=== PATIENT | female | born 1940 | race Asian ===

== ENCOUNTER 2017-08-27 07:30 | Inpatient (IN) | payer MEDICARE, MEDICAID ==
[~2017-08-27] VITALS: Ht 175.3 cm; Wt 59.9 kg
[2017-10-14] MEDS ORDERED: CRESTOR10 M2 ORAL (12:45)
[2017-10-14] MEDS ORDERED: ZYPREXA2.5 MG ORAL (12:45)
[2017-10-14] MEDS ORDERED: COMPAZINE10 MG ORAL (12:45)
[2017-10-14] MEDS ORDERED: PANTOPRAZOLE SO40 MG ORAL (12:45)
[2017-10-14] MEDS ORDERED: TEMAZEPAM30 MG ORAL (12:45)
[2017-10-14] MEDS ORDERED: DIAZEPAM10 MG ORAL (12:45)
[2017-10-14] MEDS ORDERED: BUPROPION XL300 M1 PO (12:45)
[2017-10-14] MEDS ORDERED: CARAFATE1 G1 ORAL (12:45)
[2017-10-14] MEDS ORDERED: FLUOXETINE HCL20 MG ORAL (12:45)
[2017-10-15] VITALS (18 sets, daily range): BP systolic 115–163; BP diastolic 60–88
[2017-10-15] MEDS ORDERED: SOOTHE LUBRICA1 EACH OP (05:58)
[2017-10-15] MEDS ORDERED: SYMPROIC PO (05:58)
[2017-10-15] MEDS ORDERED: [UNRECOGNIZED DRUG - OTHER] LEFT EYE (06:00)
[2017-10-15] MEDS ORDERED: Bacitracin 50000 Units Vial ONE ×2 (06:51→08:50)
[2017-10-15] MEDS ORDERED: NeoSporin Gu Irrig 1ml Amp IRRIG ONE ×2 (06:51→08:50)
[2017-10-15] MEDS ORDERED: Zemuron 50mg/5ml Inj IV ONE (06:53)
[2017-10-15] MEDS ORDERED: NS Irrig 2000ml IRRIG ONE (07:00)
[2017-10-15] MEDS ORDERED: oxyCODONE 5mg IR tab ORAL PRN (07:00)
[2017-10-15] MEDS ORDERED: Morphine Sulfate 2mg/ml Inj(IV/IM USE ONLY) IVP PRN ×2 (07:00)
[2017-10-15] MEDS ORDERED: Morphine Sulfate 4mg/ml Inj (IV USE ONLY) IVP PRN (07:00)
[2017-10-15] MEDS ORDERED: Sterile Water Irrig 1000ml IRRIG ONE (07:00)
[2017-10-15] MEDS ORDERED: Neostigmine 1mg/ml 10ml Inj ONE (07:00)
[2017-10-15] MEDS ORDERED: LR 1000ml ONE (07:00)
[2017-10-15] MEDS ORDERED: NS Irrig 1000ml ONE (07:00)
[2017-10-15] MEDS ORDERED: Glycopyrrolate 0.2mg/ml 1ml Vial ONE (07:00)
--- NOTE | 2017-10-15 07:00 | Pre-Procedure Note/Attestation ---
Pre-Procedure Note/Attestation Complete Prior to Procedure Planned Procedure: right Procedure Narrative: right knee replacement Indications for Procedure Pre-Operative Diagnosis: right knee arthritis Attestation I attest that I discussed the nature of the procedure; its benefits; risks and complications; and alternatives (and the risks and benefits of such alternatives ), prior to the procedure, with the patient (or the patient's legal litigation claim representative). I attest that, if there was a reasonable possibility of needing a blood transfusion, the patient (or the patient's legal litigation claim representative) was given the [facility] standardized written summary, pursuant to the [place] Blood Safety Act ([place] Health and Safety Code # 1645, as amended). I attest that I re-evaluated the patient just prior to the surgery and that there has been no change in the patient's H&P, except as documented below: Shaq Mann MD Oct 15, 2017 07:00
[2017-10-15] MEDS ORDERED: cloNIDine 1000mcg/10ml inj ONE (07:07)
[2017-10-15] MEDS ORDERED: Midazolam 2mg/2ml Inj ONE (07:08)
--- NOTE | 2017-10-15 07:08 | Brief Operative Note ---
Immediate Post Operative Note Operative Note Pre-op Diagnosis: right knee arthritis Procedure: RIGHT KNEE REPLACEMENT Post-op Diagnosis: RIGHT KNEE ARTHRITIS Post-op Diagnosis: same as pre-op Findings: consistent w/pre-op dx studies Surgeon: MAREN Radar Repairer: TOMEKA Anesthesia: general Specimen: yes Complications: none Fluids: YES Implant(s) used?: Yes Shaq Mann MD Oct 15, 2017 07:08
[2017-10-15] MEDS ORDERED: fentaNYL 100 mcg/2 mL IV ONE ×2 (07:10→07:49)
[2017-10-15] MEDS ORDERED: Bupivacaine 0.75% 30ml vial INJ ONE (07:13)
[2017-10-15] MEDS ORDERED: Tranexamic Acid 1,000 MG in NS 65 ML IV ONE (07:30)
--- NOTE | 2017-10-15 08:39 | Anethesia Preoperative Eval ---
Anesthesia Pre-op PMH/ROS General Date of Evaluation: Oct 15, 2017 Time of Evaluation: 07:00 Anesthesiologist: Koempel. Kina SMITH ASA Score: ASA 2 Mallampati Score Class I : Soft palate, uvula, fauces, pillars visible Class II: Soft palate, uvula, fauces visible Class III: Soft palate, base of uvula visible Class IV: Only hard plate visible Mallampati Classification: Class II Surgeon: Angel Diagnosis: Chondrocalcinosis RIGHT knee Anesthesia History: PONV Family History: no anesthesia problems Allergies: Coded Allergies: No Known Allergies (Unverified , 10/14/17) Past Medical History Cardiovascular: Reports: other - Hyperlipidiemia; Denies: HTN, CAD, [place], valve dz, arrhythmia Gastrointestinal/Genitourinary: Reports: GERD, other; Denies: CRI, ESRD Neurologic/Psychiatric: Reports: depression/anxiety - major depressice disorder with psychotic features, other; Denies: dementia, CVA, TIA Musculoskeletal/Integumentary: Reports: other - Chondrocalcinosis Other: other Anesthesia Pre-op Phys. Exam Physician Exam Last Vital Signs Date Time Temp Pulse Resp B/P (MAP) Pulse Ox O2 Delivery O2 Flow Rate FiO2 10/15/17 06:07 97.2 67 20 132/78 (96) 100 97.2 10/15/17 05:47 Room Air Constitutional: NAD Cardiovascular: RRR Respiratory: CTA Gastrointestinal: S/NT/ND Airway Exam Mallampati Score: Class II MO: full ROM: full Teeth: missing, broken Anesthesia Pre-op A/P Studies Pre-op Studies: EKG, CXR Pre-Antibiotics Drug: Cefazolin Given Within 1 Hr of Incision: Yes Time Given: 07:35 Kina Perez CRNA Oct 15, 2017 08:39
[2017-10-15] MEDS ORDERED: LR 1000ml 1,000 ML IVLG SCH (08:56)
[2017-10-15] MEDS ORDERED: Esmolol 100mg/10ml Inj ONE (09:00)
[2017-10-15] MEDS ORDERED: Dexamethasone 4mg/ml vial ONE (09:00)
[2017-10-15] MEDS ORDERED: DiphenhydrAMINE 50mg/ml Inj IVP PRN (09:00)
[2017-10-15] MEDS ORDERED: fentaNYL 100 mcg/2 mL IV PRN (09:00)
[2017-10-15] MEDS ORDERED: Propofol 200mg/20ml IV ONE (09:00)
[2017-10-15] MEDS ORDERED: Lidocaine 1% MPF 10mg/ml 5ml ONE (09:00)
[2017-10-15] MEDS ORDERED: Hydromorphone 0.5mg/0.5ml inj IVP PRN (09:00)
[2017-10-15] MEDS ORDERED: Enoxaparin 40mg Inj SUBQ SCH (09:00)
[2017-10-15] MEDS ORDERED: Ropivacaine 5mg/ml Vial 30ml INJ ONE (09:00)
[2017-10-15] MEDS ORDERED: Bacitracin Oint 15gm Tube TOPIC ONE (09:29)
--- NOTE | 2017-10-15 10:04 | Immediate Post-Op Evaluation ---
Immediate Post-Op Evalulation Immediate Post-Op Evalulation Procedure: RIGHT total knee replacement Date of Evaluation: Oct 15, 2017 Time of Evaluation: 10:00 IV Fluids: LR 2000 ml Blood Products: none Estimated Blood Loss: 100 ml Urinary Output: 200 ml Blood Pressure Systolic: 159 Blood Pressure Diastolic: 88 Pulse Rate: 87 Respiratory Rate: 20 O2 Sat by Pulse Oximetry: 99 Temperature (Fahrenheit): 98.1 Nausea: No Vomiting: No Complications none Patient Status: awake, reacts, patent Hydration Status: adequate Drug: cefazolin 2 gm Given Within 1 Hr of Incision: Yes Time Given: 07:30 Kina Perez CRNA Oct 15, 2017 10:04
[2017-10-15] MEDS ORDERED: Ketorolac 30mg Inj ONE (10:07)
[2017-10-15] MEDS ORDERED: Rate Change PCA 1 Each MISC PRN (13:30)
[2017-10-15] MEDS ORDERED: Naloxone 0.4mg/ml Inj IV PRN (13:30)
[2017-10-15] MEDS ORDERED: PCA HYDROmorphone 30mg/30ml Syr IV PRN (13:30)
[2017-10-15] MEDS ORDERED: PCA Education Pamphlet MISC ONE (13:30)
--- NOTE | 2017-10-15 13:50 | Diagnostic Imaging Report ---
Indications: Postoperative Technique: Two views of the right knee Comparison: None Findings: Two postoperative views of the right knee demonstrate total knee arthroplasty, good anatomic alignment of the prosthesis. There is a surgical drain in place. . There is postsurgical soft tissue air. Overlying skin kaitlyn. Impression: Postoperative right knee, no unusual features.
--- NOTE | 2017-10-15 13:51 | Diagnostic Imaging Report ---
Indication: Right knee pain Technique: 4 views of the right knee Comparison: None Findings: There is mild narrowing of the medial joint compartment. There is considerable degenerative proliferative change of both compartments as well as subchondral sclerosis and some irregularity of the medial articular surfaces. There are also patellar osteophytes. No definite joint effusion. No acute fractures. No dislocations Impression: Degenerative changes, as described No acute bony trauma
[2017-10-15] MEDS ORDERED: ceFAZolin sod 1 GM in D5W 55 ML IV SCH (14:00)
[2017-10-15] MEDS ORDERED: HYDROcodone/Acetamin 10/325 tab ORAL SCH (14:58)
[2017-10-15] MEDS ORDERED: HYDROcodone/Acetamin 10/325 tab ORAL PRN (15:00)
[2017-10-15] MEDS ORDERED: HYDROmorphone 1mg/ml Carpuject SUBQ PRN (15:00)
[2017-10-15] MEDS: D5 1/2NS w/KCl 20mEq 1,000 ML IV SCH (15:34)
[2017-10-15] MEDS: ceFAZolin 1gm/50ml Premix 50 ML IV SCH ×2 (16:29→23:59)
[2017-10-15] MEDS: Docusate 100mg/10ml Liq NG SCH (17:32)
[2017-10-15] MEDS: PCA shift volume MISC SCH (19:04)
--- NOTE | 2017-10-15 20:23 | Cardiology Progress Note ---
Assessment/Plan Assessment/Plan full note dicated [id number] Objective Last 24 Hour Vital Signs Date Time Temp Pulse Resp B/P (MAP) Pulse Ox O2 Delivery O2 Flow Rate FiO2 10/15/17 17:36 18 10/15/17 17:06 18 10/15/17 17:00 80 18 130/60 (83) 95 10/15/17 16:36 18 10/15/17 16:30 79 20 136/67 (90) 100 10/15/17 16:21 18 10/15/17 16:06 18 10/15/17 16:00 97.4 82 18 115/74 (88) 99 97.4 10/15/17 15:51 18 10/15/17 15:45 91 20 115/74 (88) 100 10/15/17 15:30 89 18 129/70 (89) 99 10/15/17 15:15 97.5 90 18 128/71 (90) 99 97.5 10/15/17 12:10 98.0 68 18 140/77 (98) 99 98.0 10/15/17 11:44 Nasal Cannula 3.0 10/15/17 11:40 81 18 124/73 (90) 99 10/15/17 11:25 97.2 100 18 149/72 (97) 100 97.2 10/15/17 11:07 98.2 65 16 159/65 100 Nasal Cannula 3 98.2 10/15/17 10:45 62 16 143/68 100 Nasal Cannula 3 10/15/17 10:30 69 16 146/71 100 Simple Mask 8 10/15/17 10:15 87 16 150/71 100 Simple Mask 8 10/15/17 10:05 83 16 162/79 100 Simple Mask 8 10/15/17 10:04 208.6 87 20 99 10/15/17 10:00 81 16 163/76 100 Simple Mask 8 10/15/17 09:55 98.1 87 16 159/88 99 Simple Mask 8 98.1 10/15/17 06:07 97.2 67 20 132/78 (96) 100 97.2 10/15/17 05:47 Room Air Blake Granados MD Oct 15, 2017 20:22
[2017-10-15] MEDS: Sucralfate 1gm tab ORAL SCH (21:19)
[2017-10-15] MEDS: Enoxaparin 40mg Inj SUBQ SCH (21:29)
--- NOTE | 2017-10-15 21:45 | Consultation ---
DATE OF CONSULTATION: 10/15/2017 CONSULTING PHYSICIAN: Last Frost M.D. REFERRING PHYSICIAN: Shaq Mann M.D. REASON FOR CONSULTATION: Acute pain consult. HISTORY OF PRESENT ILLNESS: Thank you kindly for consulting me to evaluate and render an opinion as to how to proceed in the management of the patient's acute postoperative right knee pain after right total knee arthroplasty. I saw the patient at the bedside with her stepson. I discussed the case with yourself, Dr. Mann along with the hospitalist, Dr. Granados and the hospital pharmacist, PharmD, Nikita. I performed detailed history and physical examination. I reviewed the medical record in detail including advance directives. PAST MEDICAL HISTORY: 1. Acute postoperative right knee pain status right total knee arthroplasty by Dr. Mann in October 2017. 2. Elderly age. 3. Severe insomnia. 4. Chronic pain syndrome. 5. Major depressive disorder with psychotic features. 6. Hyperlipidemia. PAST SURGICAL HISTORY: Bilateral knee arthroscopies and eye surgeries. MEDICATIONS AT HOME: Talmo 10 mg 4 times a day, sometimes 2 tablets at a time, Restoril 30 mg at bedtime, Carafate, Compazine, Protonix, Crestor, Adderall, and Valium. ALLERGIES: Lactose intolerant. SOCIAL HISTORY: The patient lives with her stepson, who is at the bedside. The patient also has another son who lives near [place]. FAMILY HISTORY: Colon cancer and kidney failure. REVIEW OF SYSTEMS: Per Dr. Granados. PHYSICAL EXAM: GENERAL: Age 77, height 5 feet 3 inches, and weight 130 pounds. VITAL SIGNS: Afebrile, pulse 68, respirations 18, blood pressure 140/77, and pulse ox 99%. HEENT: Normocephalic and atraumatic. ABDOMEN: Soft and flat. NEUROLOGIC: Alert and oriented x3. Moving all extremities x4. EXTREMITIES: Right knee shows a knee mobilizer in place. Moving all toes x10. Significant pain with range of motion. BREASTS AND GENITOURINARY: Deferred. DIAGNOSTIC TESTING: On 10/08/2017 shows glucose 88, BUN 18, and creatinine 0.9. Sodium 140, potassium 4.4, chloride 104, bicarb 29, and calcium 9.5. Total protein 6.5 . Albumin 3.8 . Total bilirubin 0.4. Alkaline phosphatase 79, AST 17, and ALT 14. PTT 32 and INR 1.0. White count 5, hematocrit 34, and platelets 266,000. A 12-lead EKG shows normal sinus rhythm with ventricular rate 71. Preoperative chest x-ray shows no acute cardiopulmonary disease. IMPRESSION: 1. Acute postoperative right knee pain status right total knee arthroplasty by Dr. Mann in October 2017. 2. Elderly age. 3. Severe insomnia. 4. Chronic pain syndrome. 5. Major depressive disorder with psychotic features. 6. Hyperlipidemia. TREATMENT RECOMMENDATIONS: The patient does have a history of chronic opioid usage. Her primary care physician for the past 4 months has been refilling her prescriptions for 10 mg Valium and Talmo 10/325. The patient does use Talmo tablets 1 or 2 at a time with a total daily maximum dose of 4 tablets daily. I will place her on one tablet with each meal for baseline analgesia and then we will add 2 tablets at a time orally every 4 hours p.r.n. for mild pain. I have spoken with the pharmacist, Nikita, to initiate a Dilaudid SEPARATOR INSERTER. I will start with a 0.2 mg demand dose at 12 minutes lockout for better safety profile in this elderly woman. There will be no underlying basal rate or continuous rate. She will continue with the supplemental oxygen and continue with pulse oximetry for at least the first 24 hours along with the SEPARATOR INSERTER unit. I will also make available a breakthrough dose of Dilaudid 1 mg subcutaneously every three hours p.r.n. for severe pain exacerbation. I will discontinue any previous orders for plain Tylenol since the Talmo tablets are already plenty with Tylenol in them. The patient uses Protonix chronically and I have restarted the Protonix 40 mg nightly for GI ulcer prophylaxis. I have also ordered a p.r.n. dose of Mylanta 30 mL q.6 hours in case of any GERD symptom exacerbation. The patient does use Valium and Restoril chronically for her insomnia. With this benzodiazepine-dependence, I have increased the frequency of Valium to q.8 hours p.r.n. for insomnia or anxiety. I have added Benadryl 25 mg orally every 6 hours in case of any itching complaints. I will place the patient on Colace b.i.d. to help with bowel regularity. I have ordered Cepacol lozenges in case of any sore throat complaints. Zofran and Phenergan have been ordered in case of any nausea symptoms. The patient is lactate intolerance, so I have asked the nurse to change the diet to avoid lactose containing products. Dr. Mann has placed the patient on Lovenox 40 mg daily for DVT prophylaxis in this elderly woman. I have taught the patient how to properly use incentive spirometer to encourage good pulmonary toilet and help reduce the risk of postoperative pneumonia and atelectasis. Last Frost M.D. DR: JOEL JOB#: [id number] CC:
--- NOTE | 2017-10-16 02:30 | Consultation ---
DATE OF CONSULTATION: 10/15/2017 CARDIOLOGY CONSULTATION CONSULTING PHYSICIAN: Blake Granados M.D. REFERRING PHYSICIAN: Shaq Mann M.D. REASON FOR REFERRAL: Postoperative medical care. HISTORY OF PRESENT ILLNESS: This is a 77-year-old female, who has been followed by Dr. José Washington. The patient has a series of medical problems. The patient was admitted and undergone knee replacement therapy by Dr. Young today. This consultation is requested for postoperative medical management. The patient does not have any chest pain or shortness of breath. There is no PND. No orthopnea. No palpitation. No dizziness or lightheadedness. PAST MEDICAL HISTORY: Positive for recurrent bouts of major depression, costochondritis, chronic pain syndrome, and hyperlipidemia. She has had a history of cataract surgery and knee arthroscopy previously. MEDICATIONS: As an outpatient include [place], Symproic, Restoril, Carafate, Compazine, vitamin E, Protonix, Crestor, Adderall, Valium, and Depo-testosterone injections. SOCIAL HISTORY: She has never smoked or drank alcoholic beverages. She has a history of acid use many, many years ago she states. REVIEW OF SYSTEMS: GASTROINTESTINAL: She does not have any nausea at this time. No bowel movements. She has been able to eat today. GENITOURINARY: She has a Schroeder catheter. PULMONARY: Has a cough for the past few days. Has had some brown sputum. CONSTITUTIONAL: Negative. NEUROLOGICAL: Numbness and tingling sensation in her left leg. PHYSICAL EXAMINATION: GENERAL: Shows to be an elderly female, in no respiratory distress. NECK: Supple. No jugular venous distention. LUNGS: Clear to auscultation and percussion. CARDIAC: S1 is normal. S2 is normal. Regular rate and rhythm. No heaves, thrills, or gallops noted. ABDOMEN: Soft and nontender. Positive bowel sounds. EXTREMITIES: There is no clubbing, cyanosis, nor is there any edema. Right CPM machine at this time. LABORATORY AND DIAGNOSTIC DATA: The patient does not have any postoperative laboratories. Preop laboratories from Dr. Washington' office were reviewed. Blood sugar was 88. Creatinine was 0.9. Liver function tests were normal. Coags were normal. White count of 5.2, hemoglobin 11.1, and platelet count 266,000. Electrocardiogram preoperatively, appears to be in normal sinus rhythm, no ST or T-wave abnormalities. A chest x-ray performed shows no active cardiopulmonary disease. ASSESSMENT: 1. Status post total knee replacement. 2. History of chondrocalcinosis. 3. Chronic pain syndrome. 4. Depression. 5. Hyperlipidemia. PLAN: This patient was seen in cardiac consultation. She is doing relatively well at the present time. Her vital signs are stable. Blood pressure of 130/60, heart rate of 80, she is afebrile and saturating adequately. She has no new signs and symptoms of any major issues at this time. Her usual home medications will be continued. She will be having DVT prophylaxis with pneumatic compression stockings and will be ambulating when allowed by Dr. Young. Routine postoperative care, Schroeder catheter removed, and she is able to ambulate and hope that she would be able to be discharged in the next 72 hours or so at this time. Blake Granados M.D. DR: NUNO JOB#: [id number] CC:
[2017-10-16 04:00] VITALS: BP 120/68
[2017-10-16] MEDS: D5 1/2NS w/KCl 20mEq 1,000 ML IV SCH ×2 (04:02→17:40)
[2017-10-16] MEDS: HYDROcodone/Acetamin 10/325 tab ORAL SCH ×3 (06:15→17:43)
[2017-10-16] MEDS: PCA shift volume MISC SCH ×2 (07:00→19:22)
[2017-10-16] MEDS ORDERED: HYDROcodone/Acetamin 10/325 tab ORAL PRN (07:30)
[2017-10-16 07:58] LABS: BASOPHILS % (AUTO) 0.8 % (0.0-2.0); EOSINOPHILS % (AUTO) 0.2 % (0.0-3.0); HEMOGLOBIN 10.9 G/DL (12.0-16.0); LYMPHOCYTES % (AUTO) 22.4 % (20.0-45.0); MEAN CORPUSCULAR VOLUME 89 FL (80-99); MONOCYTES % (AUTO) 3.9 % (1.0-10.0); NEUTROPHILS % (AUTO) 72.7 % (45.0-75.0); PLATELET COUNT 204 K/UL (150-450); RED BLOOD COUNT 3.71 M/UL (4.20-5.40); RED CELL DISTRIBUTION WIDTH 12.1 % (11.6-14.8); WHITE BLOOD COUNT 9.4 K/UL (4.8-10.8)
[2017-10-16 08:00] VITALS: BP 114/69
[2017-10-16 08:26] LABS: ALANINE AMINOTRANSFERASE 15 U/L (12-78); ALBUMIN 2.7 G/DL (3.4-5.0); ALBUMIN/GLOBULIN RATIO 0.8 (1.0-2.7); ALKALINE PHOSPHATASE 74 U/L (46-116); ANION GAP 7 mmol/L (5-15); ASPARTATE AMINO TRANSFERASE 23 U/L (15-37); BILIRUBIN,TOTAL 0.4 MG/DL (0.2-1.0); BLOOD UREA NITROGEN 13 mg/dL (7-18); CALCIUM 8.4 MG/DL (8.5-10.1); CARBON DIOXIDE 26 MMOL/L (21-32); CHLORIDE 103 MMOL/L (98-107); CREATININE 0.9 MG/DL (0.55-1.30); POTASSIUM 4.4 MMOL/L (3.5-5.1); SODIUM 136 MMOL/L (136-145)
--- NOTE | 2017-10-16 08:26 | 48 Hour Post Anesthesia Eval ---
Post Anesthesia Evaluation Procedure: RIGHT total knee replacement Date of Evaluation: Oct 16, 2017 Time of Evaluation: 08:17 Blood Pressure Systolic: 124 0: 56 Pulse Rate: 72 Respiratory Rate: 20 Temperature (Fahrenheit): 97.6 O2 Sat by Pulse Oximetry: 98 Airway: patent Nausea: No Vomiting: No Pain Intensity: 3 Hydration Status: adequate Cardiopulmonary Status: stable Mental Status/LOC: patient returned to baseline Follow-up Care/Observations: n/a Post-Anesthesia Complications: none Follow-up care needed: N/A Win Suarez MD Oct 16, 2017 08:26
[2017-10-16] MEDS: Sucralfate 1gm tab ORAL SCH ×4 (08:58→20:30)
[2017-10-16] MEDS: Docusate 100mg/10ml Liq NG SCH ×2 (08:58→17:43)
[2017-10-16 12:00] VITALS: BP 153/83
--- NOTE | 2017-10-16 13:30 | Progress Note ---
DATE: 10/16/2017 ACUTE PAIN MANAGEMENT PHYSICIAN PROGRESS NOTE MEDICATIONS: Medication administration record reviewed. Medications include IV fluids, Colace, Protonix, [place] with meals, Dilaudid CONTRACT PARALEGAL, Lovenox, and Carafate. P.r.n. medications include Narcan, Benadryl, Cepacol, Zofran, Mylanta, Valium, Phenergan, Dilaudid, and [place]. LABORATORY STUDIES: No interval laboratory studies. OBJECTIVE: VITAL SIGNS: Within normal limits. Afebrile, pulse 96, respirations 18, blood pressure 120/68, and oxygen saturation 96%. I saw the patient at the bedside with the nurse RN, Porsche. The patient is alert and oriented x3. She is moving all extremities x4. Her knee is in the full extension position while she is supine. The CPM device is in the bedside. The patient has been using her CONTRACT PARALEGAL Dilaudid unit and I once again explained proper usage to encourage adequate analgesia so she can walk with physical therapy later today. The patient does chronically use 4 mg daily as well as significant amount of nightly benzodiazepine, either Valium or Restoril. I did explain to the patient that Valium remains available 10 mg up to every eight hours p.r.n. The patient also has breakthrough doses of Dilaudid subcutaneously to complement the Dilaudid CONTRACT PARALEGAL, which has been working well. I do have the patient on scheduled [place] one tablet with each meal as she customarily uses three to four tablets of [place] daily already. I also have a p.r.n. dose of [place], which I will reduce to one tablet orally every three hours p.r.n. for additional breakthrough pain. The patient is 77 years old, and despite her considerable narcotic tolerance, may develop some sundowning or mental status changes with the polypharmacy. The patient is on Lovenox for chemical anticoagulation appropriately per Dr. Mann. I did once again encourage aggressive incentive spirometer usage, in this elderly woman, I encouraged good pulmonary toilet. Last Frost M.D. DR: ROSALINA JOB#: [id number] CC:
[2017-10-16 16:00] VITALS: BP 128/73
--- NOTE | 2017-10-16 19:05 | Cardiology Progress Note ---
Assessment/Plan Assessment/Plan 1. Status post total knee replacement. 2. History of chondrocalcinosis. 3. Chronic pain syndrome. 4. Depression. 5. Hyperlipidemia. 6. Anemia i discussed annie in detail reg her antidepressant meds she apparently she stopped all her antidepressant meds 1 week ago on her won appear she was taking prozac 80 mg daily in light of her needing pain meds as well i will start on prozac 20 mg for now Check orthostatic vital in am keep on ivf switch to ns watch cbc in a m Subjective Cardiovascular: Reports: lightheadedness; Denies: chest pain, palpitations Respiratory: Denies: shortness of breath, SOB with excertion Gastrointestinal/Abdominal: Reports: constipated; Denies: abdominal pain Genitourinary: Denies: burning Objective Last 24 Hour Vital Signs Date Time Temp Pulse Resp B/P (MAP) Pulse Ox O2 Delivery O2 Flow Rate FiO2 10/16/17 17:43 97.9 10/16/17 16:00 20 10/16/17 16:00 97.9 88 20 128/73 (91) 95 97.9 10/16/17 12:49 98.8 10/16/17 12:00 20 10/16/17 12:00 98.8 80 20 153/83 (106) 99 98.8 10/16/17 11:50 97.6 10/16/17 09:00 Room Air 10/16/17 08:26 207.7 72 20 98 10/16/17 08:00 18 10/16/17 08:00 99.1 87 19 114/69 (84) 95 99.1 10/16/17 04:00 18 10/16/17 04:00 98.7 96 18 120/68 (85) 96 98.7 10/16/17 00:00 18 10/15/17 21:19 18 10/15/17 21:00 Room Air 10/15/17 20:00 97.7 72 19 130/65 (86) 95 97.7 Neck: supple Cardiovascular: normal rate, regular rhythm Respiratory/Chest: chest wall non-tender, lungs clear Abdomen: normal bowel sounds, non tender, soft Extremities: no swelling, other - pneumaotic stockin in palce left leg , righ tleg in cpm Intake and Output 10/15/17 10/16/17 19:00 07:00 Intake Total 2595 ml 1250 ml Output Total 850 ml 1500 ml Balance 1745 ml -250 ml Intake Oral 320 ml 300 ml IV Total 2275 ml 950 ml Output Urine Total 750 ml 1350 ml Drainage Total 150 ml Estimated Blood Loss 100 ml Laboratory Tests Test 10/16/17 07:05 White Blood Count 9.4 K/UL (4.8-10.8) Red Blood Count 3.71 M/UL (4.20-5.40) L Hemoglobin 10.9 G/DL (12.0-16.0) L Hematocrit 33.0 % (37.0-47.0) L Mean Corpuscular Volume 89 FL (80-99) Mean Corpuscular Hemoglobin 29.3 PG (27.0-31.0) Mean Corpuscular Hemoglobin Concent 32.9 G/DL (32.0-36.0) Red Cell Distribution Width 12.1 % (11.6-14.8) Platelet Count 204 K/UL (150-450) Mean Platelet Volume 7.2 FL (6.5-10.1) Neutrophils (%) (Auto) 72.7 % (45.0-75.0) Lymphocytes (%) (Auto) 22.4 % (20.0-45.0) Monocytes (%) (Auto) 3.9 % (1.0-10.0) Eosinophils (%) (Auto) 0.2 % (0.0-3.0) Basophils (%) (Auto) 0.8 % (0.0-2.0) Prothrombin Time 10.4 SEC (9.30-11.50) Prothromb Time International Ratio 1.0 (0.9-1.1) Sodium Level 136 MMOL/L (136-145) Potassium Level 4.4 MMOL/L (3.5-5.1) Chloride Level 103 MMOL/L (98-107) Carbon Dioxide Level 26 MMOL/L (21-32) Anion Gap 7 mmol/L (5-15) Blood Urea Nitrogen 13 mg/dL (7-18) Creatinine 0.9 MG/DL (0.55-1.30) Estimat Glomerular Filtration Rate mL/min (>60) Glucose Level 124 MG/DL (74-106) H Calcium Level 8.4 MG/DL (8.5-10.1) L Total Bilirubin 0.4 MG/DL (0.2-1.0) Aspartate Amino Transf (AST/SGOT) 23 U/L (15-37) Alanine Aminotransferase (ALT/SGPT) 15 U/L (12-78) Alkaline Phosphatase 74 U/L (46-116) Total Protein 6.2 G/DL (6.4-8.2) L Albumin 2.7 G/DL (3.4-5.0) L Globulin 3.5 g/dL Albumin/Globulin Ratio 0.8 (1.0-2.7) L Blake Granados MD Oct 16, 2017 19:05
--- NOTE | 2017-10-16 19:48 | Consultation ---
History of Present Illness General Date patient seen: Oct 16, 2017 Present Illness HPI 77-year-old female, with hx of depression and anxiety. The patient was admitted and undergone knee replacement therapy by Dr. Hector augustin. Allergies: Coded Allergies: No Known Allergies (Unverified , 10/14/17) Medication History Scheduled Bupropion HCl (Bupropion Xl), 300 MG PO DA, (Reported) Diazepam* (Diazepam*), 10 MG ORAL DA, (Reported) Fluoxetine Hcl* (Fluoxetine Hcl*), 80 MG ORAL DAILY, (Reported) Glycerin/Propylene Glycol (Soothe Lubricant Eye Drops), 1 EACH OP , (Reported) Olanzapine* (Zyprexa*), 2.5 MG ORAL DAILY, (Reported) Pantoprazole* (Pantoprazole*), 40 MG ORAL DAILY, (Reported) Rosuvastatin Calcium* (Crestor*), 10 MG ORAL DAILY, (Reported) Sucralfate* (Carafate*), 1 GM ORAL FOUR TIMES A DAY, (Reported) [Gen Teal Tears], LEFT EYE BEDTIME, (Reported) [Symproic], 0.2 MG PO DA, (Reported) Scheduled PRN Prochlorperazine (Compazine*), 10 MG ORAL Q6H PRN for Nausea & Vomiting, ( Reported) Temazepam* (Temazepam*), 30 MG ORAL BEDTIME PRN for Insomnia, (Reported) Patient History Healthcare decision maker MANOLO Resuscitation status Full Code Advanced Directive on File No Physical Exam Last 24 Hour Vital Signs Date Time Temp Pulse Resp B/P (MAP) Pulse Ox O2 Delivery O2 Flow Rate FiO2 10/16/17 18:42 97.9 10/16/17 17:43 97.9 10/16/17 16:00 20 10/16/17 16:00 97.9 88 20 128/73 (91) 95 97.9 10/16/17 12:00 20 10/16/17 12:00 98.8 80 20 153/83 (106) 99 98.8 10/16/17 11:50 97.6 10/16/17 09:00 Room Air 10/16/17 08:26 207.7 72 20 98 10/16/17 08:00 18 10/16/17 08:00 99.1 87 19 114/69 (84) 95 99.1 10/16/17 04:00 18 10/16/17 04:00 98.7 96 18 120/68 (85) 96 98.7 10/16/17 00:00 18 10/15/17 21:19 18 10/15/17 21:00 Room Air 10/15/17 20:00 97.7 72 19 130/65 (86) 95 97.7 Intake and Output 10/15/17 10/16/17 19:00 07:00 Intake Total 2595 ml 1250 ml Output Total 850 ml 1500 ml Balance 1745 ml -250 ml Intake Oral 320 ml 300 ml IV Total 2275 ml 950 ml Output Urine Total 750 ml 1350 ml Drainage Total 150 ml Estimated Blood Loss 100 ml Laboratory Tests Test 10/16/17 07:05 White Blood Count 9.4 K/UL (4.8-10.8) Red Blood Count 3.71 M/UL (4.20-5.40) L Hemoglobin 10.9 G/DL (12.0-16.0) L Hematocrit 33.0 % (37.0-47.0) L Mean Corpuscular Volume 89 FL (80-99) Mean Corpuscular Hemoglobin 29.3 PG (27.0-31.0) Mean Corpuscular Hemoglobin Concent 32.9 G/DL (32.0-36.0) Red Cell Distribution Width 12.1 % (11.6-14.8) Platelet Count 204 K/UL (150-450) Mean Platelet Volume 7.2 FL (6.5-10.1) Neutrophils (%) (Auto) 72.7 % (45.0-75.0) Lymphocytes (%) (Auto) 22.4 % (20.0-45.0) Monocytes (%) (Auto) 3.9 % (1.0-10.0) Eosinophils (%) (Auto) 0.2 % (0.0-3.0) Basophils (%) (Auto) 0.8 % (0.0-2.0) Prothrombin Time 10.4 SEC (9.30-11.50) Prothromb Time International Ratio 1.0 (0.9-1.1) Sodium Level 136 MMOL/L (136-145) Potassium Level 4.4 MMOL/L (3.5-5.1) Chloride Level 103 MMOL/L (98-107) Carbon Dioxide Level 26 MMOL/L (21-32) Anion Gap 7 mmol/L (5-15) Blood Urea Nitrogen 13 mg/dL (7-18) Creatinine 0.9 MG/DL (0.55-1.30) Estimat Glomerular Filtration Rate mL/min (>60) Glucose Level 124 MG/DL (74-106) H Calcium Level 8.4 MG/DL (8.5-10.1) L Total Bilirubin 0.4 MG/DL (0.2-1.0) Aspartate Amino Transf (AST/SGOT) 23 U/L (15-37) Alanine Aminotransferase (ALT/SGPT) 15 U/L (12-78) Alkaline Phosphatase 74 U/L (46-116) Total Protein 6.2 G/DL (6.4-8.2) L Albumin 2.7 G/DL (3.4-5.0) L Globulin 3.5 g/dL Albumin/Globulin Ratio 0.8 (1.0-2.7) L Height (Feet): 5 Height (Inches): 9.00 Weight (Pounds): 132 Medications Current Medications Medications (Trade) Dose Ordered Sig/Marcia Route PRN Reason Start Time Stop Time Status Last Admin Dose Admin Acetaminophen/ Hydrocodone Bitart ([place] 10/325) 1 tab BEFORE MEALS ORAL 10/16/17 06:30 10/23/17 06:29 10/16/17 17:43 Acetaminophen/ Hydrocodone Bitart ([place] 10/325) 1 tab Q3H PRN ORAL Pain Scale (3-5) 10/16/17 07:30 10/23/17 07:29 Al Hydroxide/Mg Hydroxide (Mylanta) 30 ml Q6H PRN ORAL GERD 10/15/17 14:30 11/14/17 14:29 Cetylpyridinium Chloride (Cepacol) 1 lozg Q2H PRN NEO SORE THROAT 10/15/17 14:30 11/14/17 14:29 Diazepam (Valium) 10 mg Q8H PRN ORAL Insomnia / ANXIETY 10/15/17 14:30 10/22/17 14:29 Diphenhydramine HCl (Benadryl) 25 mg Q6H PRN ORAL Itching 10/15/17 14:30 11/14/17 14:29 10/16/17 08:59 Docusate Sodium (Colace) 100 mg TWICE A DAY NG 10/15/17 18:00 11/14/17 17:59 10/16/17 17:43 Enoxaparin Sodium (Lovenox) 40 mg Q24H SUBQ 10/15/17 21:00 11/14/17 20:59 10/15/17 21:29 Fluoxetine HCl (PROzac) 20 mg DAILY ORAL 10/17/17 09:00 11/16/17 08:59 Hydromorphone HCl 30 ml @ 0 mls/hr Q24H PRN IV For Pain 10/15/17 13:30 10/17/17 13:29 10/15/17 15:11 Hydromorphone HCl (Dilaudid) 1 mg Q3H PRN SUBQ Severe Breakthru Pain (>7) 10/15/17 15:00 10/22/17 14:59 Miscellaneous Medication (EMPLOYMENT SPECIALIST/PROGRAM MANAGER Rate Change) 1 ea DAILY PRN MISC EMPLOYMENT SPECIALIST/PROGRAM MANAGER RATE CHANGE 10/15/17 13:30 10/17/17 13:29 Miscellaneous Medication (EMPLOYMENT SPECIALIST/PROGRAM MANAGER shift volume) 1 ea Q12HR@0700,1900 MISC 10/15/17 19:00 10/17/17 18:59 10/16/17 19:22 Naloxone HCl (Narcan) 0.1 mg PRN IV STAT IF RR<10MIN OR SBP<90MMHG 10/15/17 13:30 10/17/17 13:29 Ondansetron HCl (Zofran) 4 mg Q4H PRN IVP Nausea & Vomiting 10/15/17 14:30 11/14/17 14:29 Pantoprazole (Protonix) 40 mg DAILY ORAL 10/16/17 09:00 11/15/17 08:59 10/16/17 08:58 Promethazine HCl (Phenergan) 12.5 mg Q8H PRN IM Nausea & Vomiting 10/15/17 14:35 11/14/17 14:29 Sodium Chloride 1,000 ml @ 75 mls/hr [id number] IV 10/16/17 19:08 11/15/17 19:07 Sucralfate (Carafate) 1 gm FOUR TIMES A DAY ORAL 10/15/17 21:00 11/14/17 20:59 10/16/17 17:43 Wing Pena MD Oct 16, 2017 19:48
[2017-10-16 20:00] VITALS: BP 105/60
[2017-10-16] MEDS: Enoxaparin 40mg Inj SUBQ SCH (20:29)
[2017-10-17] VITALS: BP 128/77
[2017-10-17] MEDS ORDERED: Rate Change PCA 1 Each MISC PRN
[2017-10-17] MEDS ORDERED: HYDROcodone/Acetamin 10/325 tab ORAL PRN (01:30)
--- NOTE | 2017-10-17 01:45 | Progress Note ---
DATE: 10/17/2017 ACUTE PAIN MANAGEMENT PHYSICIAN PROGRESS NOTE MEDICATIONS: Medication administration record reviewed. Medications include IV fluids, Colace, Protonix, Prozac, [place] with each meal, Lovenox, and Carafate. The p.r.n. medications include Dilaudid FENCE RIDER, Benadryl, Cepacol, Zofran, Mylanta, Valium, Phenergan, Dilaudid, and [place]. LABORATORY STUDIES: Laboratory studies from yesterday shows 10/16/2017 white count 9, hematocrit 33 and platelets 204. Sodium 136, potassium 4.4, chloride 103, bicarbonate 26, BUN 13, creatinine 0.9, glucose 124 and calcium 8.4. Total bilirubin 0.4. AST 23, ALT 15 and alkaline phosphatase 74. Total protein 6.2. Albumin 2.7. INR 1.0. I saw the patient at the bedside after discussion with the nurse, Sondra. The patient did ambulate a bit out of bed with physical therapy, but has been progressing slowly. She does not appear to be overly sedated, but she does seem to be at loss for words at times. I will decrease the dosing of her breakthrough Dilaudid from 1 mg subcutaneously to 0.5 mg subcutaneously. I am fearful that a higher dose may be too strong for her despite her chronic usage of [place]. I also will decrease her scheduled [place] with meals from one tablet of 10/325 mg to one tablet of 5/325 mg. She continues to use the FENCE RIDER Dilaudid unit, but not with significant dosing and frequency. I will continue the FENCE RIDER for now to encourage the patient's ambulation. The patient states that she chronically uses Restoril or Valium. Valium will continue to be available on a p.r.n. basis. The patient's son-in-law remains in the room providing good social support. The patient will continue ambulating with physical therapy as tolerated. The patient remains on Lovenox for DVT prophylaxis. I strongly encourage more aggressive using of incentive spirometer, as the patient does have low-grade fevers, which certainly are contributed from postoperative atelectasis and poor incentive spirometer usage. The patient remains on Prozac for mood stabilization. I will defer discharge planning for the surgeon . Last Frost M.D. DR: KEN JOB#: [id number] CC:
[2017-10-17] MEDS ORDERED: HYDROmorphone 1mg/ml Carpuject SUBQ PRN (03:00)
[2017-10-17 04:00] VITALS: BP 121/65
[2017-10-17] MEDS: HYDROcodone/Acetamin 10/325 tab ORAL SCH ×3 (06:29→16:30)
[2017-10-17] MEDS: PCA shift volume MISC SCH ×2 (06:58→19:20)
[2017-10-17 08:00] VITALS: BP 113/65
[2017-10-17 08:14] LABS: BASOPHILS % (AUTO) 0.7 % (0.0-2.0); EOSINOPHILS % (AUTO) 1.6 % (0.0-3.0); HEMOGLOBIN 9.4 G/DL (12.0-16.0); LYMPHOCYTES % (AUTO) 22.3 % (20.0-45.0); MEAN CORPUSCULAR VOLUME 87 FL (80-99); MONOCYTES % (AUTO) 5.4 % (1.0-10.0); NEUTROPHILS % (AUTO) 69.9 % (45.0-75.0); PLATELET COUNT 181 K/UL (150-450); RED BLOOD COUNT 3.22 M/UL (4.20-5.40); RED CELL DISTRIBUTION WIDTH 11.8 % (11.6-14.8); WHITE BLOOD COUNT 8.9 K/UL (4.8-10.8)
[2017-10-17 08:36] LABS: ANION GAP 5 mmol/L (5-15); BLOOD UREA NITROGEN 11 mg/dL (7-18); CALCIUM 8.8 MG/DL (8.5-10.1); CARBON DIOXIDE 29 MMOL/L (21-32); CHLORIDE 103 MMOL/L (98-107); POTASSIUM 3.5 MMOL/L (3.5-5.1); SODIUM 137 MMOL/L (136-145)
[2017-10-17] MEDS: Docusate 100mg/10ml Liq NG SCH (08:55)
[2017-10-17] MEDS: Sucralfate 1gm tab ORAL SCH ×4 (08:55→21:05)
[2017-10-17 12:00] VITALS: BP 108/66
[2017-10-17] MEDS ORDERED: PCA HYDROmorphone 1mg/ml 30 ML IV PRN (13:30)
[2017-10-17 16:00] VITALS: BP 126/63
[2017-10-17] MEDS ORDERED: Tubing IV Secondary IV ONE (16:20)
[2017-10-17] MEDS: Docusate 100mg/10ml Liq ORAL SCH (18:14)
--- NOTE | 2017-10-17 19:07 | Cardiology Progress Note ---
Assessment/Plan Assessment/Plan 1. Status post total knee replacement. 2. History of chondrocalcinosis. 3. Chronic pain syndrome. 4. Depression. 5. Hyperlipidemia. 6. Anemia on prozac 20 mg for now Check orthostatic vital in am keep on ivf switch to ns watch cbc in a m again mom amelie may need Subjective Cardiovascular: Denies: chest pain, lightheadedness, palpitations Respiratory: Denies: SOB with excertion Gastrointestinal/Abdominal: Reports: constipated; Denies: abdominal pain Genitourinary: Denies: discharge Objective Last 24 Hour Vital Signs Date Time Temp Pulse Resp B/P (MAP) Pulse Ox O2 Delivery O2 Flow Rate FiO2 10/17/17 16:00 98.1 97 19 126/63 (84) 98 98.1 10/17/17 16:00 19 10/17/17 13:32 99.2 10/17/17 12:33 99.2 10/17/17 12:00 18 10/17/17 12:00 97.9 110 20 108/66 (80) 99 97.9 10/17/17 09:00 Room Air 10/17/17 08:00 18 10/17/17 08:00 99.2 107 18 113/65 (81) 96 99.2 10/17/17 04:00 99.2 100 19 121/65 (83) 97 99.2 10/17/17 04:00 19 10/17/17 00:00 97.2 100 20 128/77 (94) 94 97.2 10/17/17 00:00 20 10/16/17 21:00 Room Air 10/16/17 20:00 100.1 100 20 105/60 (75) 94 100.1 10/16/17 20:00 20 General Appearance: alert Neck: supple Cardiovascular: normal rate, regular rhythm Respiratory/Chest: lungs clear, normal breath sounds Abdomen: normal bowel sounds, non tender, soft Extremities: no swelling Intake and Output 10/16/17 10/17/17 19:00 07:00 Intake Total 220 ml 675 ml Output Total 1580 ml 60 ml Balance -1360 ml 615 ml Intake Oral 220 ml 300 ml IV Total 375 ml Output Urine Total 1500 ml Drainage Total 80 ml 60 ml # Voids 4 Laboratory Tests Test 10/17/17 07:00 White Blood Count 8.9 K/UL (4.8-10.8) Red Blood Count 3.22 M/UL (4.20-5.40) L Hemoglobin 9.4 G/DL (12.0-16.0) L Hematocrit 28.0 % (37.0-47.0) L Mean Corpuscular Volume 87 FL (80-99) Mean Corpuscular Hemoglobin 29.2 PG (27.0-31.0) Mean Corpuscular Hemoglobin Concent 33.5 G/DL (32.0-36.0) Red Cell Distribution Width 11.8 % (11.6-14.8) Platelet Count 181 K/UL (150-450) Mean Platelet Volume 7.5 FL (6.5-10.1) Neutrophils (%) (Auto) 69.9 % (45.0-75.0) Lymphocytes (%) (Auto) 22.3 % (20.0-45.0) Monocytes (%) (Auto) 5.4 % (1.0-10.0) Eosinophils (%) (Auto) 1.6 % (0.0-3.0) Basophils (%) (Auto) 0.7 % (0.0-2.0) Prothrombin Time 10.3 SEC (9.30-11.50) Prothromb Time International Ratio 1.0 (0.9-1.1) Sodium Level 137 MMOL/L (136-145) Potassium Level 3.5 MMOL/L (3.5-5.1) Chloride Level 103 MMOL/L (98-107) Carbon Dioxide Level 29 MMOL/L (21-32) Anion Gap 5 mmol/L (5-15) Blood Urea Nitrogen 11 mg/dL (7-18) Creatinine 1.0 MG/DL (0.55-1.30) Estimat Glomerular Filtration Rate mL/min (>60) Glucose Level 120 MG/DL (74-106) H Calcium Level 8.8 MG/DL (8.5-10.1) Microbiology Date/Time Source Procedure Growth Status 10/15/17 05:45 Nasal Nares MRSA Culture - Final NO METHICILLIN RESISTANT STAPH AUREUS... Complete Blake Granados MD Oct 17, 2017 19:07
[2017-10-17] MEDS ORDERED: Milk of Magnesia 30ml Ud ORAL SCH (19:30)
[2017-10-17 20:00] VITALS: BP 150/74
[2017-10-17] MEDS: Enoxaparin 40mg Inj SUBQ SCH (21:07)
[2017-10-18] VITALS: BP 147/82
[2017-10-18 04:00] VITALS: BP 127/76
[2017-10-18] MEDS: HYDROcodone/Acetamin 10/325 tab ORAL SCH ×3 (06:45→17:13)
[2017-10-18] MEDS: PCA shift volume MISC SCH ×2 (07:37→19:00)
[2017-10-18 07:46] LABS: INR 0.9 (0.9-1.1)
[2017-10-18 08:00] VITALS: BP 108/60
[2017-10-18] MEDS: BuPROPion XL 300mg tab ORAL SCH (08:50)
[2017-10-18] MEDS: Docusate 100mg/10ml Liq ORAL SCH ×2 (08:50→17:13)
[2017-10-18] MEDS: Sucralfate 1gm tab ORAL SCH ×4 (08:50→20:59)
[2017-10-18 12:00] VITALS: BP 127/76
[2017-10-18 16:00] VITALS: BP 116/72
--- NOTE | 2017-10-18 18:51 | Cardiology Progress Note ---
Assessment/Plan Status: stable, progressing Status Narrative s/p R knee replacement 10/15 Hemodynamically stable. Pain controlled w/ SITE RELIABILITY ENGINEER She c/o cough w/ purulent sputum - r/o bronchitis Assessment/Plan Continue SITE RELIABILITY ENGINEER per pain management service rehab/ PT Incentive spirometer will check sputum culture, cbc/ wbc. Does not appear toxic Subjective ROS Limited/Unobtainable: No Subjective Pt c/o cough w greenish sputum production. Objective Last 24 Hour Vital Signs Date Time Temp Pulse Resp B/P (MAP) Pulse Ox O2 Delivery O2 Flow Rate FiO2 10/18/17 18:12 97.8 10/18/17 17:13 97.8 10/18/17 16:00 19 10/18/17 16:00 97.8 97 19 116/72 (87) 98 97.8 10/18/17 12:16 98.8 10/18/17 12:00 19 10/18/17 12:00 98.0 93 18 127/76 (93) 99 98.0 10/18/17 09:00 Room Air 10/18/17 08:00 97.9 93 18 108/60 (76) 95 97.9 10/18/17 08:00 18 10/18/17 04:00 16 10/18/17 04:00 98.8 99 18 127/76 (93) 93 98.8 10/18/17 00:00 18 10/18/17 00:00 99.3 106 18 147/82 (103) 94 99.3 10/17/17 21:00 Room Air 10/17/17 20:00 18 10/17/17 20:00 98.4 107 18 150/74 (99) 97 98.4 General Appearance: WD/WN, no apparent distress, alert EENT: PERRL/EOMI Neck: supple, normal inspection, no JVD Rhythm: NSR Cardiovascular: normal rate, regularly irregular, no gallop/murmur Respiratory/Chest: chest wall non-tender, other - clear anteriorly Abdomen: non tender, soft Extremities: other - R knee immobilizer , dressing intact . L LE scd Intake and Output 10/17/17 10/18/17 19:00 07:00 # Voids 6 2 Laboratory Tests Test 10/18/17 05:05 Prothrombin Time 9.8 SEC (9.30-11.50) Prothromb Time International Ratio 0.9 (0.9-1.1) Sunita Palmer MD Oct 18, 2017 18:51
[2017-10-18 20:00] VITALS: BP 116/79
[2017-10-18] MEDS: Enoxaparin 40mg Inj SUBQ SCH (21:04)
[2017-10-19] VITALS: BP 133/81
[2017-10-19 04:00] VITALS: BP 146/88
[2017-10-19 05:28] LABS: BASOPHILS % (AUTO) 0.8 % (0.0-2.0); EOSINOPHILS % (AUTO) 3.2 % (0.0-3.0); HEMATOCRIT 24.4 % (37.0-47.0); HEMOGLOBIN 8.3 G/DL (12.0-16.0); LYMPHOCYTES % (AUTO) 22.5 % (20.0-45.0); MEAN CORPUSCULAR VOLUME 88 FL (80-99); NEUTROPHILS % (AUTO) 66.5 % (45.0-75.0); PLATELET COUNT 181 K/UL (150-450); RED BLOOD COUNT 2.76 M/UL (4.20-5.40); RED CELL DISTRIBUTION WIDTH 11.6 % (11.6-14.8); WHITE BLOOD COUNT 6.7 K/UL (4.8-10.8)
[2017-10-19 05:32] LABS: INR 0.9 (0.9-1.1)
[2017-10-19 05:42] LABS: ANION GAP 6 mmol/L (5-15); BLOOD UREA NITROGEN 12 mg/dL (7-18); CALCIUM 8.4 MG/DL (8.5-10.1); CARBON DIOXIDE 32 MMOL/L (21-32); CHLORIDE 101 MMOL/L (98-107); CREATININE 0.9 MG/DL (0.55-1.30); SODIUM 139 MMOL/L (136-145)
[2017-10-19] MEDS: HYDROcodone/Acetamin 10/325 tab ORAL SCH ×3 (05:58→16:58)
[2017-10-19 08:00] VITALS: BP 125/76
[2017-10-19] MEDS: BuPROPion XL 300mg tab ORAL SCH (08:34)
[2017-10-19] MEDS: Sucralfate 1gm tab ORAL SCH ×4 (08:34→20:46)
[2017-10-19] MEDS: Docusate 100mg/10ml Liq ORAL SCH ×2 (08:40→17:59)
[2017-10-19 11:29] VITALS: BP 122/68
--- NOTE | 2017-10-19 14:08 | Cardiology Progress Note ---
Assessment/Plan Status: stable, progressing Status Narrative s/p R knee replacement 10/15 Anemia - c/w surgical blood loss. Cough - ? bronchitis, ? atelectasis Assessment/Plan Pain management, PT per orthopedic surgery Incentive spirometer Sputum culture pending Followup h/h in am. Hold transfusion unless hg < 7 or symptoms d/w RN Subjective Subjective Pt c/o knee pain. Cough has improved Objective Last 24 Hour Vital Signs Date Time Temp Pulse Resp B/P (MAP) Pulse Ox O2 Delivery O2 Flow Rate FiO2 10/19/17 12:00 20 10/19/17 11:29 99.5 86 20 122/68 (86) 96 99.5 10/19/17 09:00 Room Air 10/19/17 08:00 98.0 98 20 125/76 (92) 96 98.0 10/19/17 08:00 20 10/19/17 04:00 19 10/19/17 04:00 98.2 97 18 146/88 (107) 99 98.2 10/19/17 00:00 99.3 98 19 133/81 (98) 99 99.3 10/19/17 00:00 19 10/18/17 21:00 Room Air 10/18/17 20:00 19 10/18/17 20:00 97.9 96 19 116/79 (91) 96 97.9 10/18/17 18:12 97.8 10/18/17 17:13 97.8 10/18/17 16:00 19 10/18/17 16:00 97.8 97 19 116/72 (87) 98 97.8 General Appearance: WD/WN, no apparent distress, alert EENT: PERRL/EOMI Neck: supple, no JVD Rhythm: NSR Cardiovascular: normal rate, regular rhythm, no gallop/murmur Respiratory/Chest: lungs clear, other - clear anteriorly Abdomen: normal bowel sounds, non tender, soft Extremities: other - R knee dressing intact. mild to moderate edema Neurologic: alert, responsive Intake and Output 10/18/17 10/19/17 19:00 07:00 Intake Total 360 ml Balance 360 ml Intake Oral 360 ml # Voids 4 5 Laboratory Tests Test 10/19/17 04:15 White Blood Count 6.7 K/UL (4.8-10.8) Red Blood Count 2.76 M/UL (4.20-5.40) L Hemoglobin 8.3 G/DL (12.0-16.0) L Hematocrit 24.4 % (37.0-47.0) L Mean Corpuscular Volume 88 FL (80-99) Mean Corpuscular Hemoglobin 29.9 PG (27.0-31.0) Mean Corpuscular Hemoglobin Concent 33.9 G/DL (32.0-36.0) Red Cell Distribution Width 11.6 % (11.6-14.8) Platelet Count 181 K/UL (150-450) Mean Platelet Volume 7.5 FL (6.5-10.1) Neutrophils (%) (Auto) 66.5 % (45.0-75.0) Lymphocytes (%) (Auto) 22.5 % (20.0-45.0) Monocytes (%) (Auto) 7.0 % (1.0-10.0) Eosinophils (%) (Auto) 3.2 % (0.0-3.0) H Basophils (%) (Auto) 0.8 % (0.0-2.0) Prothrombin Time 9.8 SEC (9.30-11.50) Prothromb Time International Ratio 0.9 (0.9-1.1) Sodium Level 139 MMOL/L (136-145) Potassium Level 4.0 MMOL/L (3.5-5.1) Chloride Level 101 MMOL/L (98-107) Carbon Dioxide Level 32 MMOL/L (21-32) Anion Gap 6 mmol/L (5-15) Blood Urea Nitrogen 12 mg/dL (7-18) Creatinine 0.9 MG/DL (0.55-1.30) Estimat Glomerular Filtration Rate mL/min (>60) Glucose Level 117 MG/DL (74-106) H Calcium Level 8.4 MG/DL (8.5-10.1) L Microbiology Date/Time Source Procedure Growth Status 10/18/17 20:40 Sputum Expectorated Gram Stain - Final Resulted 10/18/17 20:40 Sputum Expectorated Sputum Culture Pending Resulted Sunita Palmer MD Oct 19, 2017 14:08
[2017-10-19 16:00] VITALS: BP 119/72
[2017-10-19 20:00] VITALS: BP 138/83
[2017-10-19] MEDS: Enoxaparin 40mg Inj SUBQ SCH (20:50)
[2017-10-20] VITALS: BP 117/70
[2017-10-20 04:00] VITALS: BP 103/63
[2017-10-20] MEDS: HYDROcodone/Acetamin 10/325 tab ORAL SCH ×3 (06:21→16:53)
[2017-10-20 07:32] LABS: BASOPHILS % (AUTO) 1.1 % (0.0-2.0); EOSINOPHILS % (AUTO) 3.6 % (0.0-3.0); HEMATOCRIT 24.7 % (37.0-47.0); HEMOGLOBIN 8.5 G/DL (12.0-16.0); LYMPHOCYTES % (AUTO) 24.7 % (20.0-45.0); MEAN CORPUSCULAR VOLUME 86 FL (80-99); MONOCYTES % (AUTO) 9.3 % (1.0-10.0); NEUTROPHILS % (AUTO) 61.3 % (45.0-75.0); PLATELET COUNT 217 K/UL (150-450); RED BLOOD COUNT 2.87 M/UL (4.20-5.40); RED CELL DISTRIBUTION WIDTH 11.7 % (11.6-14.8)
[2017-10-20 08:00] VITALS: BP 143/66
[2017-10-20] MEDS: Docusate 100mg/10ml Liq ORAL SCH (09:00)
--- NOTE | 2017-10-20 09:23 | Physician Query ---
--------- THIS DOCUMENT IS A PERMANENT PART OF THE MEDICAL RECORD --------- PLEASE COMPLETE DOCUMENT BEFORE SIGNING Dear Dr. Mann Date: 10/20/2017 Acquisition Marketing Manager/CDS Name: Bryce Chacon Acquisition Marketing Manager/CDS Phone No.: [phone] Exercise your independent professional judgment when responding to the query. Questions asked do not imply a particular answer is desired or expected. We greatly appreciate your clarification on this issue. CLINICAL DOCUMENTATION STATES: Patient is admitted for right knee placement. CLINICAL FINDINGS SHOW: BMI: 19.5, Albumin: 2.7 Please select the most appropriate option: a. Severity b. Type [] Mild [] Protein Malnutrition [] Moderate [] Protein/Calorie Malnutrition [] Severe Criteria: Mild to Moderate Malnutrition >Serum albumin 2.8 to 3.4 g/dL or Pre-albumin 5 to 7 mg/dl (3) >Inadequate nutritional intake (1, 2, 3, 4) >NPO > 5 days >Weight loss: 5% in 1 month or 7.5% in 3 months or 10% in 6 months (1,3,4) >BMI 16 to 18.4 or Weight <90 of ideal body weight (1,2,3,4) Criteria: Moderate to Severe Malnutrition >Serum Albumin < 2.8 g/dL (1,2) >Lymphocytes < 1500/uL (2) >Inadequate nutritional intake3 , high stress e.g. major trauma, sepsis, pancreatitis, cerda etc. >Decubitus ulcers (1,2) , skin breakdown(2), easy hair pluckability >Weight <80% standard for height (2) >Triceps skin fold <3 mm2 >Mid-arm muscle circumference <25 cm2 >Creatinine-height index <60% standard (2) [] Hypoalbuminemia [] Emancipated w/ Malnutrition [] [place] (rare in [place]) [] Marasmus [] Other [] Unable to determine [] Not Applicable Condition Present on Admission: [] Yes [] No [ ] Unable to determine Please also document in your Progress Notes and/or Discharge Summary and indicate if the condition was present on admission. M.Alfonso. References: 1 [facility] Board. (2007). Nutritional support strategy for protein -energy malnutrition in the elderly. Clinical Practice Guidelines. 2 Teresita Martinez (2011). Malnutrition and nutritional assessment. In Arron Lr (18th Ed.) Stephon's Principle of Internal Medicine (450-560) [place], [place]: [facility] 3 Mary Correa. (2001). Clinical Nutrition: Protein-energy malnutrition in the inpatient. [place] [employer] Journal, vol. 165 no. 10 (pp. 1345- 134 ). 4 Melina Cho (2012). Geriactric Nutrition: Nutritional Issues in Older Adults. [email or web address]
[2017-10-20] MEDS: Sucralfate 1gm tab ORAL SCH ×2 (09:27→12:02)
[2017-10-20] MEDS: BuPROPion XL 300mg tab ORAL SCH (09:27)
[2017-10-20 12:00] VITALS: BP 143/70
[2017-10-20 16:10] VITALS: BP 120/56
--- NOTE | 2017-10-20 23:45 | Operative Note - Dictated ---
DATE OF OPERATION: 10/20/2017 NOTE: POOR AUDIO PREOPERATIVE DIAGNOSIS: Left knee end-stage osteoarthritis. POSTOPERATIVE DIAGNOSIS: Left knee end-stage osteoarthritis. PROCEDURES: Left total knee replacement. SURGEON: Shaq Mann M.D. CHANGE BOOTH ATTENDANT: Unknown. KILN OPERATOR HELPER: None. PREOPERATIVE NOTE: This is a pleasant lady who has been having pain in the knee associated with locking giving way. She did not . She had an MRI, x-rays, and multiple injections, which she has failed. I explained to her the surgery and the risks being infection, bleeding, anesthetic risks, neurovascular damage, and failure of the surgery. The patient agreed and consents were obtained. OPERATIVE ROOM NOTE: Under the benefit of endotracheal intubation and general anesthetic, the patient was given a gram of Ancef. A midline incision was made and incised through subcutaneous tissue down medial retinaculum . Identifying the osteophytes, femur with a long gaye and then placed take off 2 more mm flexion contracture and incised this made my anterior cuts, posterior cuts, anterior chamfer and posterior chamfers cuts degrees external rotation femoral component. down the proximal tibia taking 2 mm of the low side degree slope. I removed the specimen severe strain with a short full extension and full flexion stability. I then cemented the tibial component and the femoral component. Patellofemoral was subcutaneous tissue with 2-0 Vicryl, and skin with kaitlyn. There were no complications. The patient in stable condition. Shaq Mann M.D. DR: CYRIL JOB#: [id number] CC:
--- NOTE | 2017-10-22 13:06 | Discharge Summary ---
Discharge Summary Hospital Course Date of Admission Oct 15, 2017 at 05:17 Date of Discharge Oct 20, 2017 at 18:27 Admitting Diagnosis right knee osteoarthritis Reason for Hospitalization: elective surgery HPI Analia Jay is a 77 year old female who was admitted on Oct 15, 2017 at 05:17 for Right Knee Osteoarthritis Consultations 1. dr Granados-IM/cardio 2. dr Frost -pain specialist 3. dr Pena - psychiatrist Procedures s/p 10/15/[address] Mann right total knee replacement Hospital Course s/p surgery course of recovery uneventful internal medicine/mapping supervisor closely followed initially IVF neurovascular status closely monitored pain management provided as per pain specialist recommendation , initially with STAFF ACCOUNTANT patient was working with physical and occupational therapists Fall precautions maintained Incentive spirometry use was encouraged while in the bed DVT and GI prophylaxis provided patient noted to have cough sputum culture was negative pulmonary toilet provided as needed incentive spirometry use was further encouraged bowel regimen instituted patient was able to tolerate diet, IVF discontinued STAFF ACCOUNTANT discontinued and patient switched to oral analgesics as per pain specialist psychiatrist seen and evaluated the patient psychiatric medication regimen was optimized patient slowly improved and was ready for discharge home with home health services neurovascularly intact, dressing clean, dry ,and intact, pain controlled, tolerated diet, voided freely, discharge instruction provided follow up with surgeon as recommended by surgeon FINAL DIAGNOSIS Right knee osteoarthritis s/p right total knee replacement. History of chondrocalcinosis Chronic pain syndrome Hyperlipidemia Major depressive disorder with psychotic features Severe insomnia Discharge Medications Continued Medications: Bupropion HCl (Bupropion Xl) 300 Mg Tab.er.24h 300 MG PO DA, TAB (This prescription has been renewed) Diazepam* (Diazepam*) 10 Mg Tablet 10 MG ORAL DA, TAB 0 Refills (This prescription has been renewed) Fluoxetine Hcl* (Fluoxetine Hcl*) 20 Mg Capsule 80 MG ORAL DAILY, CAP (This prescription has been renewed) [Gen Teal Tears] () LEFT EYE BEDTIME (This prescription has been renewed) Glycerin/Propylene Glycol (Soothe Lubricant Eye Drops) 1 Each Droperette 1 EACH OP (This prescription has been renewed) Olanzapine* (Zyprexa*) 2.5 Mg Tablet 2.5 MG ORAL DAILY, #30 TAB 0 Refills (This prescription has been renewed) Pantoprazole* (Pantoprazole*) 40 Mg Tablet.dr 40 MG ORAL DAILY, TAB (This prescription has been renewed) Prochlorperazine (Compazine*) 10 Mg Tablet 10 MG ORAL Q6H PRN for Nausea & Vomiting, TAB (This prescription has been renewed) Rosuvastatin Calcium* (Crestor*) 10 Mg Tablet 10 MG ORAL DAILY, TAB (This prescription has been renewed) Sucralfate* (Carafate*) 1 Gm Tablet 1 GM ORAL FOUR TIMES A DAY, TAB (This prescription has been renewed) [Symproic] () 0.2 MG PO DA (This prescription has been renewed) Temazepam* (Temazepam*) 30 Mg Capsule 30 MG ORAL BEDTIME PRN for Insomnia, CAP (This prescription has been renewed) Discharge Condition Upon Discharge: stable Discharge Disposition Patient was discharged to Home with home health services Discharge Instructions Discharge Instructions Special Instructions I have been assigned to complete a D/C Summary on this account. I was not involved in the patient management Jahaira Wood NP Oct 22, 2017 13:06
== END 2017-10-20 18:27 | disposition home health service (06) | DRG 470 ==
LOC: SDSOVERFLO 10-15 05:17 → 3E 10-15 13:52
PROC: 0SRC0J9 Replacement of Right Knee Joint with Synthetic Substitute, Cemented, Open Approach (ICD-10-PCS; principal; 2017-10-15 07:00)
DX: M17.11 Unilateral primary osteoarthritis, right knee (principal); F32.3 Major depressive disorder, single episode, severe with psychotic features; G89.4 Chronic pain syndrome; E78.5 Hyperlipidemia, unspecified; G47.00 Insomnia, unspecified; M11.261 Other chondrocalcinosis, right knee; G89.18 Other acute postprocedural pain
CPT/HCPCS: 36415; 80048; 80053; 85025; 85610; 86850; 86900; 86901; 86920; 87070; 87081; 87205; 94003; 94150; J2250; J2405; J2710

== ENCOUNTER 2019-07-16 10:39 | Emergency (ER) | payer MEDICARE, MEDICAID ==
[~2019-07-16] VITALS: Ht 160 cm; Wt 59.0 kg
[~2019-07-16 10:39] MED LIST: BUPROPION XL300 M1 PO; CARAFATE1 G1 ORAL; COMPAZINE10 MG ORAL; CRESTOR10 M2 ORAL; DIAZEPAM10 MG ORAL; FLUOXETINE HCL20 MG ORAL; PANTOPRAZOLE SO40 MG ORAL; SOOTHE LUBRICA1 EACH OP; SYMPROIC PO; TEMAZEPAM30 MG ORAL; ZYPREXA2.5 MG ORAL; [UNRECOGNIZED DRUG - OTHER] LEFT EYE
--- NOTE | 2019-07-16 10:57 | NUR ---
ED Nurse Note: Pt was dropped off to ed by friend shakira patino
--- NOTE | 2019-07-16 10:58 | NUR ---
ED Nurse Note: Pt ambulated to ed c/o left lateral rib pain s/p slip and fall three days ago. pt states that she was walking out the door and slipped. Pt does not recall if she hit her head. pt respons to questions slowly. pt states 10/10 during palpation of left lateral rib. pt appears drowsy. iv line established; patent and intact. blood specimen sent to lab
[2019-07-16 11:10] VITALS: BP 101/77
--- NOTE | 2019-07-16 11:13 | NUR ---
ED Nurse Note: Left lateral rib show no bruising or abnormalities, skin dry and intact. pt placed in gown, attached to director of cardiac rehabilitation, pt provided with blanket, lights dimmed for comfort. pt attempted to urinate on bed mann; unable to obtain urine at this time will reattempt.
--- NOTE | 2019-07-16 11:20 | NUR ---
ED Nurse Note: pt taken to CT Addendum: 07/16/19 at 1121 by NELLY ED Nurse Note: PT taken to CT on venita with city planning aide
[2019-07-16 11:21] LABS: BASOPHILS % (AUTO) 1.3 % (0.0-2.0); EOSINOPHILS % (AUTO) 1.5 % (0.0-3.0); HEMATOCRIT 39.1 % (37.0-47.0); HEMOGLOBIN 13.4 G/DL (12.0-16.0); MEAN CORPUSCULAR VOLUME 84 FL (80-99); MONOCYTES % (AUTO) 6.2 % (1.0-10.0); PLATELET COUNT 273 K/UL (150-450); RED BLOOD COUNT 4.64 M/UL (4.20-5.40); RED CELL DISTRIBUTION WIDTH 11.7 % (11.6-14.8); WHITE BLOOD COUNT 8.1 K/UL (4.8-10.8)
[2019-07-16 11:26] LABS: INR 0.9 (0.9-1.1)
[2019-07-16 11:30] LABS: ANION GAP 8 mmol/L (5-15); BLOOD UREA NITROGEN 16 mg/dL (7-18); CALCIUM 9.2 MG/DL (8.5-10.1); CARBON DIOXIDE 29 MMOL/L (21-32); CHLORIDE 103 MMOL/L (98-107); CREATININE 1.2 MG/DL (0.55-1.30); POTASSIUM 3.7 MMOL/L (3.5-5.1); SODIUM 140 MMOL/L (136-145)
[2019-07-16 11:34] LABS: ALANINE AMINOTRANSFERASE 18 U/L (12-78); ALBUMIN 3.6 G/DL (3.4-5.0); ALBUMIN/GLOBULIN RATIO 0.9 (1.0-2.7); ALKALINE PHOSPHATASE 111 U/L (46-116); ASPARTATE AMINO TRANSFERASE 14 U/L (15-37); BILIRUBIN,TOTAL 0.7 MG/DL (0.2-1.0)
--- NOTE | 2019-07-16 11:34 | NUR ---
ED Nurse Note: Pt returned from CT
--- NOTE | 2019-07-16 12:03 | Emergency Room Report ---
History of Present Illness General Chief Complaint: Multiple Trauma/Fall Source: Patient Present Illness HPI This patient states that 2 days ago she was walking and missed a step down a curb and fell very hard onto her left lateral chest. She states she has severe pain at that location. She denies cough or congestion. She denies abdominal pain. She denies shortness of breath. Or chills. She denies head injury or trauma. She denies headache or neck pain. She states she did not hit her head. She has no other complaints. Allergies: Coded Allergies: No Known Allergies (Unverified , 10/14/17) COVID-19 Screening Contact w/high risk pt: No Recent Travel to affected area: No Experienced COVID-19 symptoms?: No COVID-19 Testing performed FUEL CONVERSION TECHNICIAN: No Patient History Past Medical History: see triage record, GERD, other - Uterine CA, Graves DZ Social History: Denies: smoking, alcohol use, drug use Reviewed Nursing Documentation: PMH: Agreed; PSxH: Agreed Nursing Documentation-PMH Past Medical History: No History, Except For Hx Cardiac Problems: Yes Hx Cancer: Yes Hx Gastrointestinal Problems: Yes Hx Neurological Problems: No Review of Systems All Other Systems: negative except mentioned in HPI Physical Exam Vital Signs Date Time Temp Pulse Resp B/P (MAP) Pulse Ox O2 Delivery O2 Flow Rate FiO2 07/16/19 10:56 97.5 117 22 105/77 (86) 98 Room Air Sp02 EP Interpretation: reviewed, normal General Appearance: no apparent distress, alert, GCS 15, non-toxic Head: normocephalic, atraumatic Eyes: bilateral eye PERRL, bilateral eye other - Bilateral strabismus (Baseline ) ENT: hearing grossly normal, normal pharynx, no angioedema, normal voice Neck: full range of motion, supple/symm/no masses Respiratory: lungs clear, normal breath sounds, no respiratory distress, no retraction, no accessory muscle use, speaking full sentences, other - Exquisitely TTP over the L. lateral Chest Wall Cardiovascular #1: regular rate, rhythm, no edema Gastrointestinal: normal bowel sounds, non tender, soft, non-distended, no guarding, no rebound Rectal: deferred Musculoskeletal: back normal, normal range of motion, gait/station normal, non- tender Neurologic: alert, motor strength/tone normal, oriented x3, sensory intact, responsive, speech normal Psychiatric: judgement/insight normal, memory normal, mood/affect normal, no suicidal/homicidal ideation Skin: no rash, normal color Medical Decision Making Diagnostic Impression: Primary Impression: Fall Additional Impression: Ribs, multiple fractures ER Course This patient is found to have to minimally place rib fractures. This does explain her symptoms. She was educated that these would heal spontaneously on their own. I will give her some ibuprofen, Lidoderm patches and Tylenol 3 for pain control. Overall, the patient is well-appearing and nontoxic. No emergency medical condition is identified. The patient is given close return precautions and follow-up instructions. Laboratory Tests Test 07/16/19 11:00 White Blood Count 8.1 K/UL (4.8-10.8) Red Blood Count 4.64 M/UL (4.20-5.40) Hemoglobin 13.4 G/DL (12.0-16.0) Hematocrit 39.1 % (37.0-47.0) Mean Corpuscular Volume 84 FL (80-99) Mean Corpuscular Hemoglobin 28.8 PG (27.0-31.0) Mean Corpuscular Hemoglobin Concent 34.3 G/DL (32.0-36.0) Red Cell Distribution Width 11.7 % (11.6-14.8) Platelet Count 273 K/UL (150-450) Mean Platelet Volume 6.6 FL (6.5-10.1) Neutrophils (%) (Auto) 64.0 % (45.0-75.0) Lymphocytes (%) (Auto) 27.0 % (20.0-45.0) Monocytes (%) (Auto) 6.2 % (1.0-10.0) Eosinophils (%) (Auto) 1.5 % (0.0-3.0) Basophils (%) (Auto) 1.3 % (0.0-2.0) Prothrombin Time 10.0 SEC (9.30-11.50) Prothrombin Time INR 0.9 (0.9-1.1) Activated Partial Thromboplast Time 30 SEC (23-33) Sodium Level 140 MMOL/L (136-145) Potassium Level 3.7 MMOL/L (3.5-5.1) Chloride Level 103 MMOL/L (98-107) Carbon Dioxide Level 29 MMOL/L (21-32) Anion Gap 8 mmol/L (5-15) Blood Urea Nitrogen 16 mg/dL (7-18) Creatinine 1.2 MG/DL (0.55-1.30) Estimated Glomerular Filtration Rate 43.6 mL/min (>60) Glucose Level 122 MG/DL (74-106) H Calcium Level 9.2 MG/DL (8.5-10.1) Total Bilirubin 0.7 MG/DL (0.2-1.0) Aspartate Amino Transferase (AST) 14 U/L (15-37) L Alanine Aminotransferase (ALT) 18 U/L (12-78) Alkaline Phosphatase 111 U/L (46-116) Troponin I 0.000 ng/mL (0.000-0.056) Total Protein 7.4 G/DL (6.4-8.2) Albumin 3.6 G/DL (3.4-5.0) Globulin 3.8 g/dL Albumin/Globulin Ratio 0.9 (1.0-2.7) L EKG Diagnostic Results Rate: normal Rhythm: NSR ST Segments: no acute changes Rhythm Strip Diag. Results EP Interpretation: yes Rate: 70's Rhythm: NSR, no PVC's, no ectopy CT/MRI/US Diagnostic Results CT/MRI/US Diagnostic Results : Imaging Test Ordered: CT chest Impression Non displaced rib fxs (8, 9 on L.). See official report in electronic medical record. Last Vital Signs Date Time Temp Pulse Resp B/P (MAP) Pulse Ox O2 Delivery O2 Flow Rate FiO2 07/16/19 11:10 97.5 71 18 101/77 96 Room Air Status: improved Disposition: HOME, SELF-CARE Condition: Improved Shireen Negrete DO July 16, 2019 12:03
--- NOTE | 2019-07-16 12:37 | NUR ---
ED Nurse Note: urine sample collected and sent to lab
[2019-07-16 12:40] VITALS: BP 133/64
[2019-07-16 13:07] LABS: APPEARANCE,URINE CLEAR; BILIRUBIN, URINE NEGATIVE (NEGATIVE); COLOR,URINE YELLOW; GLUCOSE, URINE (UA) NEGATIVE (NEGATIVE); KETONES,URINE NEGATIVE (NEGATIVE); LEUKOCYTE ESTERASE ,URINE 1+ (NEGATIVE); NITRITE,URINE NEGATIVE (NEGATIVE); PH,URINE 6 (4.5-8.0); PROTEIN,URINE NEGATIVE (NEGATIVE); UROBILINOGEN,URINE NORMAL MG/DL (0.0-1.0)
--- NOTE | 2019-07-16 13:11 | NUR ---
ED Nurse Note: Renato Ramirez (friend) phone number: ; please call when pt is dc so he may pick her up.
[2019-07-16] MEDS ORDERED: ACETAMINOPHEN-1 EAC1 ORAL (13:56)
[2019-07-16] MEDS ORDERED: IBUPROFEN600 M1 ORAL (13:56)
[2019-07-16] MEDS ORDERED: LIDODERM700 M1 TOPIC (13:56)
[2019-07-16 14:10] VITALS: BP 128/72
--- NOTE | 2019-07-16 14:10 | NUR ---
ED Nurse Note: Pt cleared by ERMD for discharge. DC instructions was given and explained to pt and verbalized understanding of teachings. prescription sent electronically. All medical deviecs such as ID band removed. Pt is AAO x4, ambulatory and left with all personal belongings. P/u by s/o.
--- NOTE | 2019-07-16 16:31 | Diagnostic Imaging Report ---
EXAM: CT CT Head no Contrast INDICATION: Headache. TECHNIQUE: Axial images of the brain were obtained with subsequent sagittal and coronal reformats. All CT scans at this facility are performed using dose modulation techniques as appropriate to a performed exam including the following: automated exposure control with adjustment of the mA and/or kV according to patient size. COMPARISON STUDY: None. RADIATION DOSE: CTDIvol: 53.4 mGy DLP: 1018.8 mGy-cm Dose information generated by the CT scanner is available in PACS. FINDINGS: There is mild age-related volume loss. There is no acute large territory cortical infarct, hemorrhage, mass effect or shift. Ventricles and cisterns as well as brainstem and posterior fossa appear unremarkable. The sellar region is normal. Sinuses, mastoid air cells and bony calvarium appear intact. IMPRESSION: NO ACUTE INTRACRANIAL ABNORMALITY.
--- NOTE | 2019-07-16 16:43 | Diagnostic Imaging Report ---
EXAM: CT CT Chest no Contrast CLINICAL HISTORY: Trauma with chest pain. TECHNIQUE: Axial images obtained through the chest without contrast. All CT scans at this facility are performed using dose modulation techniques as appropriate to a performed exam including the following: automated exposure control with adjustment of the mA and/or kV according to patient size. RADIATION DOSE: CTDIvol: 3.7 mGy DLP: 140.4 mGy-cm Dose information generated by the CT scanner is available in PACS. COMPARISON: None FINDINGS: There are bilateral mild atelectatic changes. There is no acute alveolar process. Cardiac and mediastinal structures are within normal limits. There is no pathologic size adenopathy. There is an incidental a parent right subclavian artery noted. There is no effusion. Limited images through the upper abdomen is unremarkable. IMPRESSION: NO ACUTE CARDIOPULMONARY DISEASE.
== END 2019-07-16 14:10 | disposition home or self-care (01) ==
LOC: EMR 12:02
DX: S22.42XA Multiple fractures of ribs, left side, initial encounter for closed fracture (principal); W19.XXXA Unspecified fall, initial encounter; Y92.9 Unspecified place or not applicable; K21.9 Gastro-esophageal reflux disease without esophagitis; Z85.42 Personal history of malignant neoplasm of other parts of uterus
CPT/HCPCS: 36415; 70450; 71250; 80053; 81003; 84484; 85025; 85610; 85730; 93005; 99284

== ENCOUNTER 2019-09-05 22:08 | Emergency (ER) | payer MEDICARE, MEDICAID ==
[~2019-09-05] VITALS: Ht 160 cm; Wt 61.2 kg
[~2019-09-05 22:08] MED LIST changes: +ACETAMINOPHEN-1 EAC1 ORAL; +IBUPROFEN600 M1 ORAL; +LIDODERM700 M1 TOPIC
[2019-09-05 22:22] VITALS: BP 165/82
--- NOTE | 2019-09-05 22:22 | NUR ---
ED Nurse Note: Patient walked in from home d/t red rash on back for 3 days, patient aao x 4 and ambulatory with steady gait. Sharp pain 7/10 on lower back. Patient placed in room, no acute distress noted during assessment.
[2019-09-05] MEDS ORDERED: VALACYCLOVIR500 MG ORAL (22:31)
[2019-09-05] MEDS ORDERED: PREDNISONE50 MG ORAL (22:31)
--- NOTE | 2019-09-05 22:31 | Emergency Room Report ---
History of Present Illness General Chief Complaint: Skin Rash/Abscess Source: Patient Present Illness HPI This is a 79-year-old female who presents with chief complaint of a rash to her back. Onset for last 3 days. Is burning and sharp in nature. Goes from the back to the her bellybutton. No fever chills. No trauma. Pain is 8 out of 10. She is taking oxycodone at home already. Denies any other complaint. No drainage. Allergies: Coded Allergies: No Known Allergies (Unverified , 10/14/17) COVID-19 Screening Contact w/high risk pt: No Recent Travel to affected area: No Experienced COVID-19 symptoms?: No COVID-19 Testing performed DISTRIBUTION ENGINEERING TECHNOLOGIST: No Patient History Past Medical History: other Past Surgical History: other Pertinent Family History: none Social History: Denies: smoking Last Menstrual Period: n/a Nursing Documentation-[facility] Past Medical History: No History, Except For Hx Cardiac Problems: Yes Hx Cancer: Yes Hx Gastrointestinal Problems: Yes Hx Neurological Problems: No Review of Systems Eye: Denies: eye pain, blurred vision ENT: Denies: ear pain, nose congestion, throat swelling Respiratory: Denies: cough, shortness of breath Cardiovascular: Denies: chest pain, palpitations Gastrointestinal: Denies: abdominal pain, diarrhea, nausea, vomiting Musculoskeletal: Denies: back pain, joint pain Skin: Reports: rash Neurological: Denies: headache, numbness Endocrine: Denies: increased thirst, increased urine Hematologic/Lymphatic: Denies: easy bruising All Other Systems: negative except mentioned in HPI Physical Exam Vital Signs Date Time Temp Pulse Resp B/P (MAP) Pulse Ox O2 Delivery O2 Flow Rate FiO2 09/04/20 22:16 99.1 104 16 177/94 (121) 97 Room Air Vitals with high blood pressure Sp02 EP Interpretation: reviewed, normal General Appearance: well appearing, no apparent distress, alert Head: normocephalic, atraumatic Eyes: bilateral eye PERRL, bilateral eye EOMI ENT: hearing grossly normal, normal pharynx Neck: full range of motion, supple, no meningismus Respiratory: chest non-tender, lungs clear, normal breath sounds Cardiovascular #1: regular rate, rhythm, no murmur Gastrointestinal: normal bowel sounds, non tender, no mass, no organomegaly, no bruit, non-distended Musculoskeletal: back normal, normal range of motion, gait/station normal Psychiatric: mood/affect normal Skin: rash - She has vesicular lesion along the right T10 distribution. Medical Decision Making Diagnostic Impression: Primary Impression: Shingles Qualified Codes: B02.9 - Zoster without complications Additional Impression: Hypertension Qualified Codes: I10 - Essential (primary) hypertension ER Course Patient presents with shingles. No evidence of secondary infection at this moment in time. No evidence of any abscess. Will discharge home. Last Vital Signs Date Time Temp Pulse Resp B/P (MAP) Pulse Ox O2 Delivery O2 Flow Rate FiO2 09/05/19 22:16 99.1 104 16 177/94 (121) 97 Room Air Status: improved Disposition: HOME, SELF-CARE Condition: Stable Scripts Prednisone* (PREDNISONE*) 50 Mg Tablet 50 MG ORAL DAILY, #5 TAB 0 Refills Prov: Adam Farah MD 09/05/19 Valacyclovir Hcl* (VALTREX*) 500 Mg Tablet 1000 MG ORAL TID for 7 Days, TAB Prov: Adam Farah MD 09/05/19 Referrals: NON PHYSICIAN (PCP) Additional Instructions: Follow-up with your doctor in 7 days for recheck. Return for fever, increasing redness, chills or any concern. Adam Farah MD Sep 05, 2019 22:31
[2019-09-05 22:35] VITALS: BP 138/75
--- NOTE | 2019-09-05 22:35 | NUR ---
ER DISCHARGE NOTE: Patient is cleared to be discharged per ERMD, pt is aox4, on room air, with stable vital signs. pt was given dc and prescription instructions, pt was able to verbalize understanding, pt id band removed. pt is able to ambulate with steady gait. pt took all belongings. pt stable upon discharge.
== END 2019-09-05 22:35 | disposition home or self-care (01) ==
LOC: EMR 22:15
DX: B02.9 Zoster without complications (principal); I10 Essential (primary) hypertension; Z85.9 Personal history of malignant neoplasm, unspecified
CPT/HCPCS: 99282; J7512